=== PATIENT | female | born 1980 | race Caucasian/White ===

== ENCOUNTER 2017-06-24 19:03 | Emergency (ER) | payer OTHER ==
[2017-06-24 19:06] VITALS: TEMP 98.4; BMI 37.8
[2017-06-24] MEDS ORDERED: SODIUM CHLORIDE 1,000 ML IV STA (20:46)
[2017-06-24 21:09] LABS: BASOPHIL 0.3 % (0-2.0); EOSINOPHIL 2.4 % (0-4.5); MCH 27.7 pg (25.7-33.7); MCHC 33.6 g/dl (32.0-36.0); MEAN CELL VOLUME 82.4 fl (80-96); NEUTROPHILS 59.4 % (42.8-82.8); PLATELET COUNT 219 K/MM3 (134-434); RDW 13.6 % (11.6-15.6); WHITE BLOOD COUNT 14.3 K/mm3 (4.0-10.0)
[2017-06-24 21:29] LABS: URINE APPEARANCE CLEAR; URINE BILIRUBIN NEGATIVE (NEGATIVE); URINE BLOOD NEGATIVE (NEGATIVE); URINE COLOR LTYELLOW; URINE GLUCOSE (UA) NEGATIVE (NEGATIVE); URINE KETONE NEGATIVE (NEGATIVE); URINE LEUK ESTERASE NEGATIVE (NEGATIVE); URINE NITRITE NEGATIVE (NEGATIVE); URINE PROTEIN NEGATIVE (NEGATIVE); URINE UROBILINOGEN NEGATIVE mg/dL (0.2-1.0)
[2017-06-24 21:38] LABS: ANION GAP 7 (8-16); BILIRUBIN,TOTAL 0.3 mg/dL (0.2-1.0); CALCIUM 8.8 mg/dL (8.5-10.1); CO2 29 mmol/L (21-32); CREATININE 0.9 mg/dL (0.55-1.02); GLUCOSE,RANDOM 77 mg/dL (74-106); SGOT/AST 17 U/L (15-37); SGPT/ALT 22 U/L (12-78); TOT PROT 7.9 g/dl (6.4-8.2)
[2017-06-24 21:38] LABS: MAGNESIUM 1.9 mg/dL (1.8-2.4)
--- NOTE | 2017-06-24 21:39 | PDOC ---
History of Present Illness - General Chief Complaint: Chest Pain Stated Complaint: CHEST PAIN Time Seen by Provider: 06/24/17 19:26 - History of Present Illness Initial Comments: 06/24/17 21:34 " The patient is a 37 year old female, with a significant past medical history of anxiety, migraines, IBS, who presents to the emergency department with midsternal chest pain followed by pins and needles to her feet bilaterally and clammy hands around 4:30PM today. The patient states she was sitting comfortably with friends today when she developed a sudden onset of sharp, stabbing pain that lasted about 30 seconds. She states the chest pain radiated to her right shoulder and up her right neck. She states her symptoms only lasted a few minutes. Pt reports that she has had similar episodes in the past, usually in the context of being tired. She also reports starting classes at the beginning of the week and states she has not been getting much sleep. She reports sleeping a total of 3 hours last and drank 2 large cups of coffee this morning. She states she usually drinks green tea daily, however, had coupons for 2 coffees and drank them both. She states her symptoms feel similar to anxiety attacks she has had in the past, but the chest pain was worse today. She denies shortness of breath, headache and dizziness. Denies leg swelling. Denies recent travel/immobilization. Denies OCP or estrogen use. She denies fever, chills, nausea, vomit, and constipation. She denies dysuria, frequency, urgency and hematuria. Allergies: NKDA Social history: recreational marijuana use. Occasional alcohol use PCP - Dr. Carpio " Past History - Past Medical History Allergies/Adverse Reactions: Allergies Allergy/AdvReac Type Severity Reaction Status Date / Time No Known Allergies Allergy Verified 06/24/17 19:06 Home Medications: Ambulatory Orders NK [No Known Home Medication] 06/24/17 Other medical history: NONE - Immunization History Immunization Up to Date: Yes - Psycho/Social/Smoking Cessation Hx Anxiety: No Suicidal Ideation: No Smoking History: Never smoked Have you smoked in the past 12 months: No Hx Alcohol Use: No Drug/Substance Use Hx: No Substance Use Type: None Review of Systems - Review of Systems Comments:: 06/24/17 21:36 """GENERAL/CONSTITUTIONAL: No fever or chills. No weakness. HEAD, EYES, EARS, NOSE AND THROAT: No ear pain or discharge. No sore throat. CARDIOVASCULAR: (+) chest pain. No shortness of breath. RESPIRATORY: No cough, wheezing, or hemoptysis. GASTROINTESTINAL: No nausea, vomiting, diarrhea or constipation. GENITOURINARY: No dysuria, frequency, or change in urination. MUSCULOSKELETAL: No joint or muscle swelling or pain. No neck or back pain. SKIN: (+) ""clammy"" hands. No rash NEUROLOGIC: No headache, vertigo, loss of consciousness, or change in strength/ sensation. ENDOCRINE: No increased thirst. No abnormal weight change. HEMATOLOGIC/LYMPHATIC: No anemia, easy bleeding, or history of blood clots. ALLERGIC/IMMUNOLOGIC: No hives or skin allergy. """ *Physical Exam - Vital Signs Last Vital Signs Temp Pulse Resp BP Pulse Ox 98.4 F 90 18 134/63 100 06/24/17 19:04 06/24/17 19:04 06/24/17 19:04 06/24/17 19:04 06/24/17 19:04 - Physical Exam Comments: 06/24/17 21:37 "GENERAL: Awake, alert, and fully oriented, in no acute distress HEAD: No signs of trauma EYES: PERRLA, EOMI, sclera anicteric, conjunctiva clear ENT: Auricles normal inspection, hearing grossly normal, nares patent, oropharynx clear without exudates. Moist mucosa NECK: Normal ROM, supple, no lymphadenopathy, JVD, or masses LUNGS: Breath sounds equal, clear to auscultation bilaterally. No wheezes, and no crackles HEART: Regular rate and rhythm, normal S1 and S2, no murmurs, rubs or gallops ABDOMEN: Soft, nontender, normoactive bowel sounds. No guarding, no rebound. No masses EXTREMITIES: Normal range of motion, no edema. No clubbing or cyanosis. No cords, erythema, or tenderness NEUROLOGICAL: Cranial nerves II through XII grossly intact. Normal speech, normal gait SKIN: Warm, Dry, normal turgor, no rashes or lesions noted. " Heart Score/ECG Review - History History: Slightly suspicious - Electrocardiogram EKG: Normal - Age Age: </= 45 - Risk Factors Risk Factors Heart Score: Yes Hx Obesity Based on the list above the patient has:: 1-2 risk factors - Troponin Troponin: </= normal limit - Score Heart Score - Total: 1 - ECG Impressions Comment:: 06/24/17 21:37 NSR, no LILLY/STDs, no TWIs, intervals wnl, axis wnl ED Treatment Course - LABORATORY CBC & Chemistry Diagram: 06/24/17 21:00 06/24/17 21:00 - ADDITIONAL ORDERS Additional order review: Laboratory Results 06/24/17 06/24/17 06/24/17 23:15 22:37 21:33 Sodium Potassium Chloride Carbon Dioxide Anion Gap BUN Creatinine Creat Clearance w eGFR Random Glucose Calcium Magnesium Total Bilirubin AST ALT Alkaline Phosphatase Creatine Kinase Creatine Kinase Index CK-MB (CK-2) Troponin I < 0.02 Total Protein Albumin TSH Free T4 0.88 Serum , Qual Negative Urine Color Urine Appearance Urine pH Ur Specific [place] Urine Protein Urine Glucose (UA) Urine Ketones Urine Blood Urine Nitrite Urine Bilirubin Urine Urobilinogen Ur Leukocyte Esterase 06/24/17 06/24/17 06/24/17 21:00 20:40 20:40 Sodium 138 Potassium 3.8 Chloride 102 Carbon Dioxide 29 Anion Gap 7 L BUN 11 Creatinine 0.9 Creat Clearance w eGFR > 60 Random Glucose 77 Calcium 8.8 Magnesium 1.9 Total Bilirubin 0.3 AST 17 ALT 22 Alkaline Phosphatase 87 Creatine Kinase 162 Creatine Kinase Index 0.6 CK-MB (CK-2) 1.075 Troponin I < 0.02 Total Protein 7.9 Albumin 4.0 TSH 4.18 H Free T4 Serum , Qual Urine Color Ltyellow Urine Appearance Clear Urine pH 7.0 Ur Specific [place] 1.015 Urine Protein Negative Urine Glucose (UA) Negative Urine Ketones Negative Urine Blood Negative Urine Nitrite Negative Urine Bilirubin Negative Urine Urobilinogen Negative Ur Leukocyte Esterase Negative 06/24/17 21:00 RBC 4.73 MCV 82.4 MCHC 33.6 RDW 13.6 MPV 9.0 Neutrophils % 59.4 Lymphocytes % 33.2 Monocytes % 4.7 Eosinophils % 2.4 Basophils % 0.3 - RADIOLOGY Radiology Studies Ordered: Category Date Time Status CHEST PA & LAT [RAD] Stat Radiology 06/24/17 20:31 Taken - Medications Given in the ED: ED Medications Discontinued Medications Generic Name Dose Route Start Last Admin Trade Name Freq PRN Reason Stop Dose Admin Sodium Chloride 1,000 mls @ 1,000 mls/hr 06/24/17 20:46 06/24/17 20:57 Normal Saline - IV 06/24/17 21:45 1,000 mls/hr ASDIR STA Administration Medical Decision Making - Medical Decision Making 06/24/17 21:37 37 F with atypical chest pain, lasting 30 minutes, now resolved. EKG unremarkable. Pt with HEART score of 1, making ACS very unlikely. Pt with PERC and Wells score of 0, making PE unlikely. Pt states chest pain is similar to her previous episodes of anxiety. - Labs, trop - CXR - UPT 06/25/17 00:18 labs unremarkable. Pt with WBC 14 but no infectious symptoms, no fevers. UA and CXR clear. Trop negative x 2 Pt reassessed. reports pain has resolved. Now resting comfortably. Pt to f/u with PMD regarding anxiety and chest pain. *DC/Admit/Observation/Transfer Diagnosis at time of Disposition: Chest pain - Discharge Dispostion Disposition: HOME Condition at time of disposition: Good - Patient Instructions Printed Discharge Instructions: DI for Atypical Chest Pain Additional Instructions: Please see your primary care doctor within 1-2 weeks for a re-evaluation. If you have worsening or persistent chest pain, shortness of breath, or any other concerning symptoms, return to the ER immediately. Print Language: BULGARIAN
[2017-06-24 21:40] LABS: CPK 162 IU/L (26-192); TROPONIN I < 0.02 ng/ml (0.00-0.05)
[2017-06-24 21:47] LABS: ALK PHOS 87 U/L (45-117); THYROID STIMULATING HORMONE 4.18 uIU/ml (0.358-3.74)
[2017-06-25 00:23] VITALS: BP 110/64; PULSE 83
--- NOTE | 2017-06-25 09:45 | EKG ---
Test Reason : Blood Pressure : / mmHG Vent. Rate : 075 BPM Atrial Rate : 075 BPM P-R Int : 160 ms QRS Dur : 088 ms QT Int : 416 ms P-R-T Axes : 038 -11 042 degrees QTc Int : 464 ms NORMAL SINUS RHYTHM NONSPECIFIC T WAVE ABNORMALITY NO PREVIOUS ECGS AVAILABLE Confirmed by MD LYNETTE, WELLINGTON ([id number]) on 06/25/2017 9:45:21 AM Referred By: Confirmed By:WELLINGTON OJEDA MD
== END 2017-06-25 00:34 | disposition home or self-care (01) ==
LOC: JER 19:03
PROC: 3E0337Z Introduction of Electrolytic and Water Balance Substance into Peripheral Vein, Percutaneous Approach (ICD-10-PCS; principal; 2017-06-24)
DX: R07.89 Other chest pain (principal); F41.9 Anxiety disorder, unspecified; G43.909 Migraine, unspecified, not intractable, without status migrainosus
CPT/HCPCS: 36415; 71020-TC; 80053; 81003; 82553; 83735; 84439; 84443; 84484; 84703; 85025; 93005; 93010; 99283-25

== ENCOUNTER 2019-05-11 12:53 | Emergency (ER) | payer OTHER ==
[2019-05-11 13:06] VITALS: BMI 41.1
--- NOTE | 2019-05-11 13:15 | PDOC ---
History of Present Illness - General Chief Complaint: Hemoptysis Stated Complaint: VOMIT BLOOD Time Seen by Provider: 05/11/19 13:15 History Source: Patient Exam Limitations: No Limitations - History of Present Illness Initial Comments: Jennifer Boyd is a 39 yo obese F w a pmh of anxiety, depression, migraines, and suspected IBS who presents to the [facility] ER via private auto bc she states she had one episode of bloody emesis yesterday. The patient states that after eating rice, beans, lentil soup, alford and amanda for dinner last night at 8 pm, she experienced an episode of nausea and vomiting at 9 which only had amanda in the vomit. Then at 9:30 pm last night she states she vomited blood. She also states she occasionally has RUQ abdominal pain which is not necessarily worsened when she eats food. Patient endorses frequent episodes of diarrhea and constipation. She experienced constipation this morning and diarrhea last night. She denies any blood coming out of her rectum with bowel movements. Denies recent fevers or chills. Denies chest pain, SOB, difficulty breathing, back pain, dysuria, frequency, or urgency. LMP: Started yesterday. PCP: None at the present time. Formerly Denver Carpio PSH: None reported Allergies: NKA, NKDA Social Hx: Recreational marijuana use. Occasional alcohol use. Past History - Past Medical History Allergies/Adverse Reactions: Allergies Allergy/AdvReac Type Severity Reaction Status Date / Time No Known Allergies Allergy Verified 06/24/17 19:06 Home Medications: Ambulatory Orders Bupropion HCl [Wellbutrin Sr] 150 mg PO DAILY 05/11/19 Vortioxetine Hydrobromide [Trintellix] 15 mg PO DAILY 05/11/19 Anemia: Yes COPD: No Psychiatric Problems: Yes (depression, PTSD, and anxiety) - Immunization History Immunization Up to Date: Yes - Suicide/Smoking/Psychosocial Hx Smoking History: Former smoker Have you smoked in the past 12 months: No Information on smoking cessation initiated: No Hx Alcohol Use: No Drug/Substance Use Hx: No Substance Use Type: None Review of Systems - Review of Systems Able to Perform ROS?: Yes Comments:: CONSTITUTIONAL: Absent: fever, chills, diaphoresis, generalized weakness, malaise, loss of appetite HEENT: Absent: rhinorrhea, nasal congestion, throat pain, throat swelling, difficulty swallowing, mouth swelling, ear pain, eye pain, visual Changes CARDIOVASCULAR: Absent: chest pain, syncope, palpitations, irregular heart rate, lightheadedness , peripheral edema RESPIRATORY: Absent: cough, shortness of breath, dyspnea with exertion, orthopnea, wheezing, stridor, hemoptysis GASTROINTESTINAL: Present: Abdominal pain, nausea, vomiting, diarrhea, constipation Absent: abdominal distension, melena, hematochezia GENITOURINARY: Present: Hematuria Absent: dysuria, frequency, urgency, hesitancy, flank pain, genital pain MUSCULOSKELETAL: Absent: myalgia, arthralgia, joint swelling SKIN: Absent: rash, itching, pallor HEMATOLOGIC/IMMUNOLOGIC: Absent: easy bleeding, easy bruising, lymphadenopathy, frequent infections ENDOCRINE: Absent: unexplained weight gain, unexplained weight loss, heat intolerance, cold intolerance NEUROLOGIC: Absent: headache, focal weakness or paresthesias, dizziness, unsteady gait, seizure, mental status changes, bladder or bowel incontinence PSYCHIATRIC: Present: anxiety, depression Absent: suicidal or homicidal ideation, hallucinations. *Physical Exam - Vital Signs Last Vital Signs Temp Pulse Resp BP Pulse Ox 98.3 F 100 H 18 121/79 98 05/11/19 12:58 05/11/19 12:58 05/11/19 12:58 05/11/19 12:58 05/11/19 12:58 - Physical Exam Comments: GENERAL: Obese. Well developed, well nourished. Awake and alert. No acute distress. HEENT: Normocephalic, atraumatic. PERRLA, EOMI. No conjunctival pallor. Sclera are non- icteric. Moist mucous membranes. Oropharynx is clear. NECK: Supple. Full ROM. No JVD. No lymphadenopathy. CARDIOVASCULAR: Tachycardic rate and regular rhythm. No murmurs, rubs, or gallops. Distal pulses are 2+ and symmetric. PULMONARY: No evidence of respiratory distress. Lungs clear to auscultation bilaterally. No wheezing, rales or rhonchi. ABDOMINAL: Negative villasenor sign. No TTP in all 4 quadrants. Soft. Non-tender. Non- distended. No rebound or guarding. No organomegaly. Normoactive bowel sounds. MUSCULOSKELETAL Normal range of motion at all joints. No bony deformities or tenderness. No CVA tenderness. EXTREMITIES: No cyanosis. No clubbing. No edema. No calf tenderness. SKIN: Warm and dry. Normal capillary refill. No rashes. No jaundice. NEUROLOGICAL: Alert, awake, appropriate. Cranial nerves 2-12 intact. No deficits to light touch in face, upper extremities and lower extremities. No motor deficits in the in face, upper extremities and lower extremities. Normal speech. Gait is normal without ataxia. PSYCHIATRIC: Cooperative. Good eye contact. Appropriate mood and affect. Procedures - Bedside Ultrasound Bedside Ultrasound: Gallbladder Remarks: Normal gallbladder. No stones, neg sono villasenor, no maile-chol fluid, no wall edema, normal CBD. No right sided hydronephrosis. No fluid in brandt pouch. Heart Score/ECG Review - ECG Intrepretation Rhythm: Regular Rhythm - [place]: Normal - P and [place] Atrial Enlargement: Left Prominent R with upright T in V1 (true posterior MA): No Delta Wave(s) Present: No WPW: No - QRS Poor R Wave Progression: No Q Wave Present: No - ST and T Early Repolarization: No Non Specific ST-T Wave changes: No Flattened T Waves: Yes Prolonged Q-T Interval: No - ECG Impressions Normal ECG: No Non-specific ST Elevation: No Ischemic Changes: No Bradycardia: No Torsades david Pointes: No WPW: No ED Treatment Course - LABORATORY CBC & Chemistry Diagram: 05/11/19 14:00 05/11/19 14:00 - RADIOLOGY Radiograph Interpretation: CTAP: History: 39-year-old female evaluate for colitis/appendicitis. Comparison: None Procedure: CT scan abdomen and pelvis, dated May 11, 2019 . Axial images obtained followed by coronal and sagittal reconstructions. Intravenous contrast utilized, type/dose not provided . Findings: The liver, spleen, pancreas, adrenal glands and kidneys unremarkable. Gallbladder gallbladder fossa normal in appearance. No ureteral or bladder abnormalities noted. Rectum and perirectal space unremarkable. Terminal ileum and appendix within normal limits. No large or small bowel inflammatory changes evident. Indeterminate small retroperitoneal lymph nodes present. The abdominal aorta/branch vessel/IVC normal in configuration. No free intraperitoneal air or fluid identified. No abdominal wall defects present. Degenerative disc disease L5-S1 disc level. Uterus anteverted in position. Tampon noted within the vagina. No adnexal masses appreciated; ovaries normal configuration. Impression: 1. No acute changes evident. No findings to suggest colitis or appendicitis. Medical Decision Making - Medical Decision Making Jennifer Boyd is a 39 yo obese F w a pmh of anxiety, depression, migraines, and suspected IBS who presents to the [facility] ER via private auto bc she states she had one episode of bloody emesis yesterday. The patient states that after eating rice, beans, lentil soup, alford and amanda for dinner last night at 8 pm, she experienced an episode of nausea and vomiting at 9 which only had amanda in the vomit. Then at 9:30 pm last night she states she vomited blood. She also states she occasionally has RUQ abdominal pain which is not necessarily worsened when she eats food. Patient endorses frequent episodes of diarrhea and constipation. She experienced constipation this morning and diarrhea last night. She denies any blood coming out of her rectum with bowel movements. Denies recent fevers or chills. Denies chest pain, SOB, difficulty breathing, back pain, dysuria, frequency, or urgency. LMP: Started yesterday. Vital Signs Temp Pulse Resp BP Pulse Ox 98.3 F 100 H 18 121/79 98 05/11/19 12:58 05/11/19 12:58 05/11/19 12:58 05/11/19 12:58 05/11/19 12:58 DDx IBNLT: Gastritis, GERD, PUD, biliary colic, cholecystitis, pancreatitis, colitis, gastroenteritis, electrolyte/metabolic disturbance, IBS, , dehydration Plan: Labs, Urine, analgesia, EKG, IV hydration, POCUS gallbladder, CTAP, re- assess. EKG: NS rate of 98, narrow complex, normal axis, ho hypertrophy, no ST elevations or depressions, no Q waves, no abnormal TWI, [place] - 148, QTc - 495. Labs: leukocytosis w left shift. Hb normal. Lipase and amylase normal. FOBT: Negative Urine: Trace ketonuria - negative HCG. POCUS: Normal gallbladder. No stones, neg sono villasenor, no maile-chol fluid, no wall edema, normal CBD. No right sided hydronephrosis. No fluid in Brandt pouch. CTAP: Impression: 1. No acute changes evident. No findings to suggest colitis or appendicitis. Re-assessment: Patient no longer feels nauseous after zofran and no longer has abdominal pain after analgesia and GI cocktail. Disposition: Home with GI FU *DC/Admit/Observation/Transfer Diagnosis at time of Disposition: Abdominal pain Qualifiers: Abdominal location: right upper quadrant Qualified Code(s): R10.11 - Right upper quadrant pain Vomiting Qualifiers: Vomiting type: unspecified Vomiting Intractability: intractable Nausea presence : with nausea Qualified Code(s): R11.2 - Nausea with vomiting, unspecified - Discharge Dispostion Disposition: HOME Condition at time of disposition: Improved Decision to Admit order: No - Referrals Referrals: Thu Herrera MD [Staff Physician] - Rene Perry MD [Staff Physician] - Jose Noe DO [Staff Physician] - Armani Tyler MD [Staff Physician] - - Patient Instructions Printed Discharge Instructions: Acute Abdominal Pain, Nausea and Vomiting-Adult Additional Instructions: You came into the ER with abdominal pain, nausea and vomiting. We looked at your blood work which showed a high WBC count. It is possible you got food poisoning from what you ate yesterday. We have attached numbers for multiple stomach/GI doctors for you to call and schedule a follow up appointment with. Please make sure to call one of them in the next 24 to 48 hours and schedule an appointment in the next 2 weeks. Come back to the ER immediately if your pain worsens, you get a fever, start vomiting, or have any other new or worsening concerns. Thank you for coming to the [facility] ER. We hope you feel better soon! Print Language: GERMAN - Post Discharge Activity
[2019-05-11] MEDS ORDERED: SODIUM CHLORIDE 1,000 ML IV STA (13:37)
[2019-05-11] MEDS ORDERED: ONDANSETRON 4 MG/2 ML VIAL IVPUSH ONE (13:38)
[2019-05-11] MEDS ORDERED: ACETAMINOPHEN 325 MG TABLET (FP) PO ONE (13:38)
[2019-05-11] MEDS ORDERED: MAG HYDROX/AL HYDROX/SIMETH -MYLANTA- ORAL SUSPENSION PO ONE (13:39)
[2019-05-11] MEDS ORDERED: ONDANSETRON 4 MG/2 ML VIAL ONE (13:49)
[2019-05-11] MEDS ORDERED: MAG HYDROX/AL HYDROX/SIMETH 30 ML UNIT-DOSE CUP ONE (13:49)
[2019-05-11] MEDS ORDERED: ACETAMINOPHEN 325 MG TABLET (FP) ONE (13:49)
[2019-05-11] MEDS ORDERED: FAMOTIDINE 20 MG/50 ML IVPB 20 MG/50 ML MG IVPB ONE ×2 (13:56→14:00)
--- NOTE | 2019-05-11 14:26 | PDOC ---
Documentation entered by Angela Soliz SCRIBE, acting as scribe for Alma Anderson DO. Alma Anderson, DO: This documentation has been prepared by the Heydi garcia Mackenzie, SCRIBE, under my direction and personally reviewed by me in its entirety. I confirm that the documentation accurately reflects all work , treatment, procedures, and medical decision making performed by me. Attending Attestation - Resident Resident Name: Dong Bridges - ED Attending Attestation I have performed the following: I have examined & evaluated the patient, The case was reviewed & discussed with the resident, I agree w/resident's findings & plan - HPI HPI: The patient is a 39 year old female, with a significant PMH of IBS (undiagnosed) , obesity, anxiety, and depression who presents to the emergency department after one episode of bloody vomit with sharp right upper quadrant pain. Patient states she ate enormous amounts of food for every meal yesterday and last night after dinner she threw up her meal, and then additionally had a second episode vomiting up blood. Patient also notes symptoms of diarrhea and constipation but states this is consistent with her suspected IBS. The patient denies chest pain, shortness of breath, headache and dizziness. Denies fever, chills. Denies dysuria, frequency, urgency and hematuria. Allergies: NKA PCP: None 05/11/19 14:05 - Physicial Exam PE: Constitutional: Awake, alert, oriented. No acute distress. Head: Normocephalic. Atraumatic Eyes: PERRL. EOMI. Conjunctivae are not pale. ENT: Mucous membranes are moist and intact. Posterior pharynx without exudates or erythema. Uvula midline. Neck: Supple. Full ROM. No lymphadenopathy. Cardiovascular: Regular rate. Regular rhythm. S1, S2 regular. Distal pulses are 2+ and symmetric. Pulmonary/Chest: No evidence of respiratory distress. Clear to auscultation bilaterally No wheezing, rales or rhonchi. Abdominal: (+)Obese. Soft and non-distended. There is no tenderness. No rebound, guarding or rigidity. No organomegaly. No palpable masses. Good bowel sounds. Back: No CVA tenderness. Musculoskeletal: No edema. No cyanosis. No clubbing. Full range of motion in all extremities. Nocalf tenderness. Radial/pedal pulses are intact and 2+ bilaterally Skin: Skin is warm and dry. No petechiae. No purpura. Neurological: Ambulates with a steady gait. Alert and oriented to person, place , and time. Cranial nerves II-XII are grossly intact. Normal speech. Strength is grossly symmetric. No sensory deficits. Psychiatric: Good eye contact. Normal interaction, affect and behavior. 05/11/19 14:06 - Medical Decision Making 05/11/19 14:14 I, Dr. Alma Anderson, DO, attest that this document has been prepared under my direction and personally reviewed by me in its entirety. I further attest, that it accurately reflects all work, treatment, procedures and medical decision -making performed by me. 05/11/19 14:14 39yo female with n/v last night assoc with abd pain after eating food -suspect gastroenteritis vs biliary disease -abd is soft and nt -pocus RUQ neg for acute biliary pathology -will send labs, lipase -will give gi cocktail -will monitor and reassess -pt ambulatory to the bathroom with a steady gait -pt nontoxic in appearance -1 episode of vomiting blood - will send stool for heme and h/h -will need GI follow up 05/11/19 15:21 pocus neg for acute biliary pathology elevated wbc pt with R sided abd pain will send for ct imaging given months of constipation/diarrhea and now vomiting blood 05/11/19 15:33 hgb stable stool for heme neg 05/11/19 16:[address] negative for acute pathology - then pt stable for dc to home pt feeling better after gi cocktail
[2019-05-11 14:31] LABS: BASO % 0.3 % (0-2.0); EOS % 1.5 % (0-4.5); HEMATOCRIT 39.5 % (32.4-45.2); HEMOGLOBIN 12.9 GM/dL (10.7-15.3); MCH 25.8 pg (25.7-33.7); MCHC 32.6 g/dl (32.0-36.0); MEAN PLT VOLUME 8.3 fl (7.5-11.1); MONO % 4.3 % (3.8-10.2); NEUT % 67.9 % (42.8-82.8); PLATELET COUNT 306 K/MM3 (134-434); RBC 4.99 M/mm3 (3.60-5.2); WHITE BLOOD COUNT 15.9 K/mm3 (4.0-10.0)
[2019-05-11 14:39] LABS: PH,URINE 5.5 (5.0-8.0); URINE APPEARANCE CLEAR; URINE BILIRUBIN NEGATIVE (NEGATIVE); URINE COLOR YELLOW; URINE GLUCOSE (UA) NEGATIVE (NEGATIVE); URINE KETONE TRACE (NEGATIVE); URINE LEUK ESTERASE NEGATIVE (NEGATIVE); URINE NITRITE NEGATIVE (NEGATIVE); URINE PROTEIN NEGATIVE (NEGATIVE); URINE UROBILINOGEN 0.2 mg/dL (0.2-1.0)
[2019-05-11 14:51] LABS: ALBUMIN 3.9 g/dl (3.4-5.0); BILIRUBIN,TOTAL 0.3 mg/dL (0.2-1); BLOOD UREA NITROGEN 10.6 mg/dL (7-18); CALCIUM 9.2 mg/dL (8.5-10.1); CREATININE 0.9 mg/dL (0.55-1.3); POTASSIUM 4.2 mmol/L (3.5-5.1)
[2019-05-11 19:32] VITALS: BP 126/67; PULSE 84; TEMP 98.1
--- NOTE | 2019-05-11 19:56 | PDOC ---
*Physical Exam - Vital Signs Last Vital Signs Temp Pulse Resp BP Pulse Ox 98.1 F 84 16 126/67 99 05/11/19 19:31 05/11/19 19:31 05/11/19 19:31 05/11/19 19:31 05/11/19 19:31 - Physical Exam General Appearance: Yes: Nourished ED Treatment Course - LABORATORY CBC & Chemistry Diagram: 05/11/19 14:00 05/11/19 14:00 - ADDITIONAL ORDERS Additional order review: Laboratory Results 05/11/19 05/11/19 05/11/19 14:31 14:00 14:00 Sodium Potassium Chloride Carbon Dioxide Anion Gap BUN Creatinine Est GFR (CKD-EPI)AfAm Est GFR (CKD-EPI)NonAf Random Glucose Calcium Total Bilirubin AST ALT Alkaline Phosphatase Total Protein Albumin Total Amylase Lipase Urine Color Yellow Urine Appearance Clear Urine pH 5.5 D Ur Specific [place] 1.026 Urine Protein Negative Urine Glucose (UA) Negative Urine Ketones Trace H Urine Blood Negative Urine Nitrite Negative Urine Bilirubin Negative Urine Urobilinogen 0.2 Ur Leukocyte Esterase Negative Urine HCG, Qual Negative Stool Occult Blood Negative 05/11/19 14:00 Sodium 141 Potassium 4.2 Chloride 105 Carbon Dioxide 28 Anion Gap 8 BUN 10.6 Creatinine 0.9 Est GFR (CKD-EPI)AfAm 94.67 Est GFR (CKD-EPI)NonAf 81.68 Random Glucose 76 Calcium 9.2 Total Bilirubin 0.3 AST 9 L ALT 18 Alkaline Phosphatase 115 Total Protein 8.0 Albumin 3.9 Total Amylase 42 Lipase 123 Urine Color Urine Appearance Urine pH Ur Specific [place] Urine Protein Urine Glucose (UA) Urine Ketones Urine Blood Urine Nitrite Urine Bilirubin Urine Urobilinogen Ur Leukocyte Esterase Urine HCG, Qual Stool Occult Blood 05/11/19 14:00 RBC 4.99 MCV 79.0 L MCHC 32.6 RDW 15.0 D MPV 8.3 Neutrophils % 67.9 Lymphocytes % 26.0 D Monocytes % 4.3 Eosinophils % 1.5 Basophils % 0.3 - Medications Given in the ED: ED Medications Discontinued Medications Generic Name Dose Route Start Last Admin Trade Name Freq PRN Reason Stop Dose Admin Acetaminophen 975 mg 05/11/19 13:38 05/11/19 13:50 Tylenol - PO 05/11/19 13:39 975 mg ONCE ONE Administration Al Hydroxide/Mg Hydroxide 30 ml 05/11/19 13:39 07/27/19 13:50 Mylanta Suspension - PO 05/11/19 13:40 30 ml ONCE ONE Administration Famotidine/Sodium Chloride 20 mg in 50 mls @ 100 mls/hr 05/11/19 14:00 13:57 Pepcid 20 Mg Premixed Ivpb - IVPB 05/11/19 14:29 100 mls/hr ONCE ONE Administration Sodium Chloride 1,000 mls @ 1,000 mls/hr 05/11/19 13:37 05/11/19 13:50 Normal Saline - IV 05/11/19 14:36 1,000 mls/hr ASDIR STA Administration Ondansetron HCl 4 mg 05/11/19 13:38 05/11/19 13:50 Zofran Injection IVPUSH 05/11/19 13:39 4 mg ONCE ONE Administration *DC/Admit/Observation/Transfer Diagnosis at time of Disposition: Abdominal pain Qualifiers: Abdominal location: right upper quadrant Qualified Code(s): R10.11 - Right upper quadrant pain Vomiting Qualifiers: Vomiting type: unspecified Vomiting Intractability: intractable Nausea presence : with nausea Qualified Code(s): R11.2 - Nausea with vomiting, unspecified - Discharge Dispostion Disposition: HOME Condition at time of disposition: Improved - Referrals Referrals: Jose Noe DO [Staff Physician] - Thu Herrera MD [Staff Physician] - Rene Perry MD [Staff Physician] - Armani Tyler MD [Staff Physician] - - Patient Instructions Printed Discharge Instructions: Acute Abdominal Pain, Nausea and Vomiting-Adult Additional Instructions: You came into the ER with abdominal pain, nausea and vomiting. We looked at your blood work which showed a high WBC count. It is possible you got food poisoning from what you ate yesterday. We have attached numbers for multiple stomach/GI doctors for you to call and schedule a follow up appointment with. Please make sure to call one of them in the next 24 to 48 hours and schedule an appointment in the next 2 weeks. Come back to the ER immediately if your pain worsens, you get a fever, start vomiting, or have any other new or worsening concerns. Thank you for coming to the [facility] ER. We hope you feel better soon! Print Language: BULGARIAN - Post Discharge Activity
--- NOTE | 2019-05-12 10:34 | EKG ---
Test Reason : Blood Pressure : / mmHG Vent. Rate : 098 BPM Atrial Rate : 098 BPM P-R Int : 148 ms QRS Dur : 080 ms QT Int : 388 ms P-R-T Axes : 040 -06 019 degrees QTc Int : 495 ms NORMAL SINUS RHYTHM POSSIBLE LEFT ATRIAL ENLARGEMENT LOW VOLTAGE QRS BORDERLINE ECG WHEN COMPARED WITH ECG OF 24-JUN-2017 21:07, NONSPECIFIC T WAVE ABNORMALITY HAS REPLACED INVERTED T WAVES IN ANTERIOR LEADS Confirmed by CASIE IQBAL, GISELLE ([id number]) on 05/12/2019 10:34:44 AM Referred By: Confirmed By:GISELLE JASON MD
== END 2019-05-11 20:06 | disposition home or self-care (01) ==
LOC: JER 12:53
PROC: 3E033GC Introduction of Other Therapeutic Substance into Peripheral Vein, Percutaneous Approach (ICD-10-PCS; principal; 2019-05-11)
PROC: 3E033GC Introduction of Other Therapeutic Substance into Peripheral Vein, Percutaneous Approach (ICD-10-PCS; 2019-05-11)
DX: R10.11 Right upper quadrant pain (principal); R11.2 Nausea with vomiting, unspecified
CPT/HCPCS: 36415; 74177-TC; 76705-TC; 80053; 81003; 82150; 82272; 83690; 84703; 85025; 93005; 93010; 96361; 96365; 96375; 99284-25; J7030

== ENCOUNTER 2019-07-30 08:20 | Day surgery (SDC) | payer OTHER ==
[2019-07-29 10:20] VITALS: BMI 40.9
[2019-07-30 10:09] VITALS: TEMP 97.9
[2019-07-30 13:16] VITALS: BP 109/68; PULSE 80
--- NOTE | 2019-07-31 17:33 | PATH ---
Surgical Pathology Report Patient Name: JOSEY SHARP [facility]. Rec. #: [id number] /Age/Gender: 1980 (Age: 39) / F Account: [id number] Location: [facility]-ENDOSCOPY Taken: 07/30/2019 Received: 07/30/2019 Reported: 07/31/2019 Physicians: Farhat Noe D.O. Specimen(s) Received A: ANTRUM AND BODY B: GE JUNCTION Clinical History Vomiting, acid reflux Postoperative diagnosis: Gastritis, esophagitis Final Diagnosis A. STOMACH, ANTRUM AND BODY, BIOPSY: GASTRIC MUCOSA WITH MILD CHRONIC GASTRITIS. IMMUNOHISTOCHEMICAL STAIN FOR H. PYLORI IS NEGATIVE. B. 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 NO DYSPLASIA IDENTIFIED. Electronically Signed Lorenza Neville M.D. Gross Description A. Received in formalin, labeled "antrum and body" are 2 lee, irregular portions of soft tissue measuring 0.2 and 0.3 cm. in greatest dimension. The specimens are submitted in toto in one cassette. B. Received in formalin, labeled "GE junction" is a lee, irregular portion of soft tissue measuring 0.3 cm. in greatest dimension. The specimen is submitted in toto in one cassette. MLSZ/07/30/2019 sanml/07/30/2019
== END 2019-07-30 11:00 | disposition home or self-care (01) ==
LOC: JASU-ENDO 08:20
PROVIDERS: ATTEND Internal Medicine Gastroenterology
PROC: 0DB68ZX Excision of Stomach, Via Natural or Artificial Opening Endoscopic, Diagnostic (ICD-10-PCS; 2019-07-30)
PROC: 0DB48ZX Excision of Esophagogastric Junction, Via Natural or Artificial Opening Endoscopic, Diagnostic (ICD-10-PCS; principal; 2019-07-30 09:00)
DX: K29.50 Unspecified chronic gastritis without bleeding (principal); K44.9 Diaphragmatic hernia without obstruction or gangrene; K21.0 Gastro-esophageal reflux disease with esophagitis; K22.70 Barrett's esophagus without dysplasia; K26.9 Duodenal ulcer, unspecified as acute or chronic, without hemorrhage or perforation
CPT/HCPCS: 84703; 88305-TC; 88342-TC